=== PATIENT | female | born 1985 | race Caucasian/White ===

== ENCOUNTER 2018-12-14 05:35 | Emergency (ER) | payer OTHER ==
[~2018-12-14] VITALS: Ht 162.6 cm; Wt 49.9 kg
[2018-12-14] MEDS ORDERED: TRAZODONE HCL100 MG PO (05:50)
[2018-12-14 06:08] VITALS: BP 131/85
== END 2018-12-14 06:08 ==
LOC: M.ERS 05:35
DX: M79.642 Pain in left hand (principal); F19.90 Other psychoactive substance use, unspecified, uncomplicated; M79.89 Other specified soft tissue disorders; Z88.8 Allergy status to other drugs, medicaments and biological substances; Z90.49 Acquired absence of other specified parts of digestive tract